=== PATIENT | female | born 1965 | race American Indian/Alaskan Native ===

== ENCOUNTER 2019-07-19 11:58 | Emergency (ER) | payer SELFPAY ==
[2019-07-19 13:34] VITALS: BP 151/83
--- NOTE | 2019-07-19 13:41 | Event Note ---
ED Screening Note Date of service: 07/19/19 Time: 13:33 ED Screening Note: This initial assessment/diagnostic orders/clinical plan/treatment(s) is/are subject to change based on patients health status, clinical progression and re- assessment by fellow clinical providers in the ED. Further treatment and workup at subsequent clinical providers discretion. Patient/guardian urged not to elope from the ED as their condition may be serious if not clinically assessed and managed. Initial orders include:
--- NOTE | 2019-07-19 13:49 | Emergency Department Report ---
Chief Complaint: Upper Respiratory Infection Stated Complaint: COLD SYM/EAR PAIN Time Seen by Provider: 07/19/19 13:32 - HPI History of Present Illness: 54 yo female c/o cough, congestion ER pain x 1 week. Denies fever, chest pain and SOB. No n/v/d, no diaphoresis, no chills.. Denies any PMH. - ROS Review of Systems: Non productive cough, congestion and ear pain - Exam Vital Signs: Vital Signs 07/19/19 13:32 Temperature 98.7 F Pulse Rate 101 H Respiratory 18 Rate Blood Pressure 151/83 O2 Sat by Pulse 99 Oximetry Physical Exam: A &O X 3 Resp easy and unlabored Ears : bilateral cerumem impaction unable to visualize TM Lungs clear breath sounds Abd soft non-tender. Skin warm dry and and intact MSE screening note: Focused history and physical exam performed. Due to findings the following was ordered: ED Medical Decision Making - Medical Decision Making URI CERUMEN IMPACTION No urgent or emergent needs. Pt does not have PCP given referral to Dr. Gaona to follow up today. She and agrees with plan ED Disposition for MSE Clinical Impression: Impacted cerumen of both ears URI (upper respiratory infection) Qualifiers: URI type: unspecified viral URI Qualified Code(s): J06.9 - Acute upper respiratory infection, unspecified Disposition: - TO HOME OR SELFCARE Is pt being admited?: No Does the pt Need Aspirin: No Condition: Stable Instructions: Cerumen Impaction (ED), Upper Respiratory Infection (ED) Additional Instructions: Follow up with Dr. Allan Levine today If you develop fever chest pain or SOB RETURN TO ER Immediately. you can buy DEBROX EAR WAX REMOVAL SYSTEM to use as directed by package insert to help remove ear wax. Can be found at your local pharmacy. Time of Disposition: 13:54
== END 2019-07-19 14:02 | disposition left against medical advice (07) ==
LOC: ED 11:58
DX: J06.9 Acute upper respiratory infection, unspecified (principal); H61.23 Impacted cerumen, bilateral
CPT/HCPCS: 99281

== ENCOUNTER 2021-03-10 06:07 | Emergency (ER) | payer SELFPAY ==
[2021-03-10 07:45] VITALS: BP 187/98
[2021-03-10 09:33] LABS: Basophils % (Auto) 0.7 % (0.0-1.8); Eosinophils # (Auto) 0.2 K/mm3 (0.0-0.4); Eosinophils % (Auto) 2.9 % (0.0-4.3); Hematocrit 43.1 % (30.3-42.9); Hemoglobin 14.3 gm/dl (10.1-14.3); Lymphocytes # (Auto) 1.8 K/mm3 (1.2-5.4); Mean Corpuscular HGB Conc 33 % (30-34); Mean Corpuscular Volume 87 fl (79-97); Monocytes # (Auto) 0.4 K/mm3 (0.0-0.8); Monocytes % (Auto) 7.7 % (0.0-7.3); Platelet Count 237 K/mm3 (140-440); Red Blood Count 4.97 M/mm3 (3.65-5.03); Red Cell Distribution Width 14.4 % (13.2-15.2)
--- NOTE | 2021-03-10 09:33 | Cat Scan Report ---
CT head without contrast INDICATION : neuro deficits <6hrs or sx present upon awakening RT sided numbness/tingling no hx of s troke . TECHNIQUE: Axial imaging performed from the skull apex through the skull base without the use of con trast. All CT scans at this location are performed using CT dose reduction for ALARA by means of aut omated exposure control. COMPARISON: 05/05/2016. FINDINGS: Parenchyma: No mass, stroke or hemorrhage. Ventricles: Ventricles are normal in size and appear symmetric. Soft tissues: Soft tissues including the orbits appear normal. Bones: No acute osseous abnormality. Sinuses: Sinuses and mastoid air cells are clear. IMPRESSION: No acute abnormality. Signer Name: Jordan Chiang MD Signed: 03/10/2021 9:29 AM Workstation Name: [id number]
[2021-03-10 09:46] LABS: Blood Urea Nitrogen 11 mg/dL (7-17); Calcium 9.4 mg/dL (8.4-10.2); Hemolysis Index 25
[2021-03-10 09:47] LABS: BUN/Creatinine Ratio 16
[2021-03-10 09:55] LABS: INR 0.91 (0.87-1.13)
--- NOTE | 2021-03-10 10:44 | Emergency Department Report ---
ED Neuro Deficit HPI - General Chief Complaint: Neuro Symptoms/Deficit Stated Complaint: RT SIDE PAIN Time Seen by Provider: 03/10/21 10:01 Source: patient Mode of arrival: Wheelchair Limitations: No Limitations - History of Present Illness Initial Comments: Chief complaint: Tingling numbness on the right side HPI: This is a 56-year-old female with history of hypertension who presents with tingling numbness right face arm leg entire right side of her body. She noticed the numbness while she was putting on her shoe. He denies paralysis trouble wit h speech. She denies trouble with balance or blurry vision. She has not taken her blood pressure medicine since 2017. She does not have health insurance. She has been without a job during the pandemic. She recently started a part- time job which does not provide health insurance. Her life partner also does not have health care benefits with his job. Patient does not smoke cigarettes. Family history notable for father who is . He has history of CVA and IA. Mother's history of hypertension she is yet alive. Patient was transported by EMS. Systolic blood pressure was greater than 200 mm Hg according to her report. -: Gradual, This morning Location: right face, right arm, right leg History of same: No Place: home Severity: mild Quality: numb, tingling Improves With: time On Anticoagulants: No Context: gradual onset Associated Symptoms: denies other symptoms - Related Data Home Medications: Home Medications Medication Instructions Recorded Confirmed Last Taken hydroCHLOROthiazide [HCTZ] 25 mg PO QDAY 05/05/16 05/05/16 Unknown Previous Rx's Medication Instructions Recorded Last Taken Type Ibuprofen [Motrin 800 MG tab] 800 mg PO Q8HR PRN #20 tablet 05/05/16 Unknown Rx cephALEXin [Keflex] 500 mg PO QID #28 capsule 05/05/16 Unknown Rx Aspirin [Adult Aspirin] 81 mg PO DAILY 90 Days #90 03/10/21 Unknown Rx tablet. Valsartan 80 mg PO DAILY 90 Days #90 tablet 03/10/21 Unknown Rx amLODIPine 10 mg PO DAILY 90 Days #90 tab 03/10/21 Unknown Rx Allergies/Adverse Reactions: Allergies Allergy/AdvReac Type Severity Reaction Status Date / Time No Known Allergies Allergy Verified 05/05/16 08:36 ED Review of Systems ROS: Stated complaint: RT SIDE PAIN Other details as noted in HPI Comment: All other systems reviewed and negative Constitutional: denies: chills, fever Respiratory: denies: cough, shortness of breath Cardiovascular: denies: chest pain Gastrointestinal: denies: abdominal pain, nausea, vomiting Neurological: numbness, paresthesias. denies: headache, weakness, confusion, abnormal gait, vertigo ED Past Medical Hx - Past Medical History Previous Medical History?: Yes Hx Hypertension: Yes - Surgical History Past Surgical History?: Yes Additional Surgical History: - Family History Family history: CAD/IA, hypertension, vascular disease - Social History Smoking Status: Never Smoker Substance Use Type: None - Medications Home Medications: Home Medications Medication Instructions Recorded Confirmed Last Taken Type Ibuprofen [Motrin 800 MG tab] 800 mg PO Q8HR PRN #20 tablet 05/05/16 Unknown Rx cephALEXin [Keflex] 500 mg PO QID #28 capsule 05/05/16 Unknown Rx hydroCHLOROthiazide [HCTZ] 25 mg PO QDAY 05/05/16 05/05/16 Unknown History Aspirin [Adult Aspirin] 81 mg PO DAILY 90 Days #90 03/10/21 Unknown Rx tablet. Valsartan 80 mg PO DAILY 90 Days #90 tablet 03/10/21 Unknown Rx amLODIPine 10 mg PO DAILY 90 Days #90 tab 03/10/21 Unknown Rx ED Neuro Physical Exam - General Limitations: No Limitations General appearance: alert, in no apparent distress Suspected Stroke: No - Head Head exam: Present: atraumatic, normocephalic - Eye Eye exam: Present: normal appearance - ENT ENT exam: Present: mucous membranes moist - Neck Neck exam: Present: normal inspection, full ROM - Respiratory Respiratory exam: Present: normal lung sounds bilaterally. Absent: respiratory distress, wheezes, rales, rhonchi - Cardiovascular Cardiovascular Exam: Present: regular rate, normal rhythm, normal heart sounds. Absent: systolic murmur, diastolic murmur, rubs, gallop - GI/Abdominal GI/Abdominal exam: Present: soft, normal bowel sounds. Absent: distended, tenderness, guarding, rebound - Extremities Exam Extremities exam: Present: normal inspection - Back Exam Back exam: Present: normal inspection - Neurological Exam Neurological exam: Present: alert, oriented X3 - NIHSS Assessment Interval: Baseline 1a. Level of Consciousness: alert/keenly responsive 1b. LOC Questions: answers both correctly 1c. LOC Commands: performs tasks correctly 2. Best Gaze: normal 3. Visual: no visual loss 4. Facial Palsy: normal symmetrical movement 5b. Motor Arm Right: no drift 5a. Motor Arm Left: no drift 6a. Motor Leg Left: no drift 6b. Motor Leg Right: no drift 7. Limb Ataxia: absent 8. Sensory: normal 9. Best Language: no aphasia 10. Dysarthria: normal 11. Extinction/Inattention: no abnormality Total Score: 0 Stroke Severity: No Stroke Symptoms - Psychiatric Psychiatric exam: Present: normal affect, normal mood - Skin Skin exam: Present: warm, dry, intact, normal color. Absent: rash ED Course Vital Signs 03/10/21 07:44 Temperature 98.5 F Pulse Rate 85 Respiratory 16 Rate Blood Pressure 187/98 O2 Sat by Pulse 98 Oximetry - Lab Data Result diagrams: 03/10/21 07:51 03/10/21 07:51 Lab Results 03/10/21 03/10/21 03/10/21 Range/Units 07:51 07:51 07:51 WBC 5.4 (4.5-11.0) K/mm3 RBC 4.97 (3.65-5.03) M/mm3 Hgb 14.3 (10.1-14.3) gm/dl Hct 43.1 H (30.3-42.9) % MCV 87 (79-97) fl MCH 29 (28-32) pg MCHC 33 (30-34) % RDW 14.4 (13.2-15.2) % Plt Count 237 (140-440) K/mm3 Lymph % (Auto) 33.0 (13.4-35.0) % [place] % (Auto) 7.7 H (0.0-7.3) % Eos % (Auto) 2.9 (0.0-4.3) % Baso % (Auto) 0.7 (0.0-1.8) % Lymph # (Auto) 1.8 (1.2-5.4) K/mm3 [place] # (Auto) 0.4 (0.0-0.8) K/mm3 Eos # (Auto) 0.2 (0.0-0.4) K/mm3 Baso # (Auto) 0.0 (0.0-0.1) K/mm3 Seg Neutrophils % 55.7 (40.0-70.0) % Seg Neutrophils # 3.0 (1.8-7.7) K/mm3 PT 12.8 (12.2-14.9) Sec. INR 0.91 (0.87-1.13) APTT 29.0 (24.2-36.6) Sec. Thrombin Time (15.1-19.6) Sec. Sodium 142 (137-145) mmol/L Potassium 3.7 (3.6-5.0) mmol/L Chloride 103.9 (98-107) mmol/L Carbon Dioxide 29 (22-30) mmol/L Anion Gap 13 mmol/L BUN 11 (7-17) mg/dL Creatinine 0.7 (0.6-1.2) mg/dL Estimated GFR > 60 ml/min BUN/Creatinine Ratio 16 % Glucose 85 (65-100) mg/dL Calcium 9.4 (8.4-10.2) mg/dL Troponin T < 0.010 (0.00-0.029) ng/mL 03/10/21 Range/Units 07:51 WBC (4.5-11.0) K/mm3 RBC (3.65-5.03) M/mm3 Hgb (10.1-14.3) gm/dl Hct (30.3-42.9) % MCV (79-97) fl MCH (28-32) pg MCHC (30-34) % RDW (13.2-15.2) % Plt Count (140-440) K/mm3 Lymph % (Auto) (13.4-35.0) % [place] % (Auto) (0.0-7.3) % Eos % (Auto) (0.0-4.3) % Baso % (Auto) (0.0-1.8) % Lymph # (Auto) (1.2-5.4) K/mm3 [place] # (Auto) (0.0-0.8) K/mm3 Eos # (Auto) (0.0-0.4) K/mm3 Baso # (Auto) (0.0-0.1) K/mm3 Seg Neutrophils % (40.0-70.0) % Seg Neutrophils # (1.8-7.7) K/mm3 PT (12.2-14.9) Sec. INR (0.87-1.13) APTT (24.2-36.6) Sec. Thrombin Time 17.6 (15.1-19.6) Sec. Sodium (137-145) mmol/L Potassium (3.6-5.0) mmol/L Chloride (98-107) mmol/L Carbon Dioxide (22-30) mmol/L Anion Gap mmol/L BUN (7-17) mg/dL Creatinine (0.6-1.2) mg/dL Estimated GFR ml/min BUN/Creatinine Ratio % Glucose (65-100) mg/dL Calcium (8.4-10.2) mg/dL Troponin T (0.00-0.029) ng/mL - Radiology Data Radiology results: report reviewed [facility] [address] [place] [address] Cat Scan Report Signed Patient: LUKAS PATRICK MR#: [id number] : 1965 Acct:[id number] Age/Sex: 56 / F ADM Date: 03/10/21 Loc: ED Attending Dr: Ordering Physician: TYLER DAMIAN MD Date of Service: 03/10/21 Procedure(s): CT head/brain wo con Accession Number(s): [id number] cc: TYLER DAMIAN MD CT head without contrast INDICATION : neuro deficits <6hrs or sx present upon awakening RT sided numbness/tingling no hx of stroke . TECHNIQUE: Axial imaging performed from the skull apex through the skull base without the use of contrast. All CT scans at this location are performed using CT dose reduction for ALARA by means of automated exposure control. COMPARISON: 05/05/2016. FINDINGS: Parenchyma: No mass, stroke or hemorrhage. Ventricles: Ventricles are normal in size and appear symmetric. Soft tissues: Soft tissues including the orbits appear normal. Bones: No acute osseous abnormality. Sinuses: Sinuses and mastoid air cells are clear. IMPRESSION: No acute abnormality. Signer Name: Jordan Chiang MD Signed: 03/10/2021 9:29 AM Workstation Name: [id number] Transcribed By: ES Dictated By: Jordan Chiang MD Electronically Authenticated By: Jordan Chiang MD Signed Date/Time: 03/10/21928 DD/ 4 TD/TT: - Medical Decision Making Hypertensive urgency: Differential diagnosis includes TIA, CVA, metabolic derangement. Patient will require outpatient blood pressure medicine. In addition antiplatelet aspirin therapy will be prescribed in the next 90 days for cardiovascular health. I have prescribed valsartan and amlodipine. Also provi ded to [facility] Rx coupons. I have reviewed labs CBC chemistry within normal limits. I have provided referral to internal medicine physician as well as [facility] Critical care attestation.: If time is entered above; I have spent that time in minutes in the direct care of this critically ill patient, excluding procedure time. ED Disposition Clinical Impression: Hypertensive urgency Disposition: DC-01 TO HOME OR SELFCARE Is pt being admited?: No Does the pt Need Aspirin: No Condition: Stable Instructions: Hypertension, Adult, Fkec-di-Gemc Prescriptions: Aspirin [Adult Aspirin] 81 mg PO DAILY 90 Days #90 tablet. amLODIPine 10 mg PO DAILY 90 Days #90 tab Valsartan 80 mg PO DAILY 90 Days #90 tablet Referrals: BITA DIXON MD [Staff Physician] - 3-5 Days [facility] [Outside] - 3-[address] [facility] [Outside] - 3-5 Days
== END 2021-03-10 11:30 | disposition home or self-care (01) ==
LOC: ED 06:07
DX: I10 Essential (primary) hypertension (principal); R20.2 Paresthesia of skin
CPT/HCPCS: 36415; 70450; 80048; 84484; 85025; 85610; 85670; 85730; 99284